=== PATIENT | female | born 2005 | race Hispanic/Latino ===

== ENCOUNTER 2024-05-08 21:36 | Emergency (ER) | payer OTHER ==
[2024-05-08] MEDS ORDERED: KETOROLAC 30 MG/ML INJ ONE (21:52)
[2024-05-08] MEDS ORDERED: METOCLOPRAMIDE 10 MG/2mL INJ ONE (21:52)
[2024-05-08] MEDS ORDERED: NA CHLORIDE 0.9% 1,000 ML ONE (21:52)
[2024-05-08 21:56] LABS: Absolute Eosinophils 0.3 K/uL (0-0.5); Absolute Lymphocytes (CBC) 2.7 K/uL (0.7-4.9); Absolute Monocytes 0.3 K/uL (0.1-1.3); Absolute Neutrophil 3.6 K/uL (1.8-8.0); Basophils % 0.7 % (0-1.3); Eosinophils % 4.8 % (0-4.4); Hematocrit 37.9 % (36.0-45.0); Hemoglobin 12.8 g/dL (12.0-15.0); Lymphocytes % 38.8 % (15.3-44.8); MCH 30.5 pg (27.0-35.0); MCHC 33.7 g/dL (32.0-36.0); MCV 90.5 fL (80-100); MPV 9.5 fL (7.6-11.3); Monocytes % 4.3 % (3.3-12.3); Neutrophils % 51.4 % (41.7-73.7); Nucleated Red Blood Cells % 0.1 % (0-0); Platelets 240 thou/uL (152-406); RBC Red Blood Cell Count 4.19 M/uL (3.86-4.86); Red Cell Distribution Width 13.6 % (12.1-15.2)
[2024-05-08 22:36] LABS: Potassium 3.1 mEq/L (3.5-4.9)
[2024-05-08 22:37] LABS: Albumin 4.1 g/dL (3.4-5.0); Albumin/Globulin Ratio 1.1 (1.1-1.8); Anion Gap 12.1 mEq/L (5.0-15.0); Bilirubin Total 0.6 mg/dL (0.2-1.0); Globulin 3.8 g/dL (2.3-3.5); Protein, Total 7.9 g/dL (6.4-8.2)
--- NOTE | 2024-05-09 01:42 | ER ---
Nurse's Notes [facility] Name: Devi Rodriguez Age: 19 yrs Sex: Female : 2005 Arrival Date: 05/08/2024 Time: 21:36 Bed 6 Private MD: Diagnosis: Choking episode, acute esophageal irritation, Acute esophagitis Presentation: 05/08 21:40 Chief complaint: Patient states: reportedly choked on rice 30 minutes- 1 hour ago. Pt ss reports she feels like something may still be lodged in her esophagus. NAD at this time. Coronavirus screen: Client denies travel out of the [place] in the last 14 days. Ebola Screen: Patient denies exposure to infectious person. Patient denies travel to an Ebola-affected area in the 21 days before illness onset. Initial Sepsis Screen: Does the patient meet any 2 criteria? No. Patient's initial sepsis screen is negative. Does the patient have a suspected source of infection? No. Patient's initial sepsis screen is negative. Risk Assessment: Do you want to hurt yourself or someone else? Patient reports no desire to harm self or others. Onset of symptoms was May 08, 2024. 21:40 Method Of Arrival: EMS: [facility] ss 21:40 Acuity: ROD 3 ss Triage Assessment: 21:42 General: Appears in no apparent distress. Behavior is calm, cooperative. Pain: Denies ss pain. EENT: Oral mucosa is moist. Throat is clear. Neuro: Level of Consciousness is awake, alert, obeys commands, Oriented to person, place, time, situation, Tariff Counsel are equal bilaterally Speech is normal. Respiratory: Airway is patent Respiratory effort is even, unlabored, Respiratory pattern is regular, symmetrical. GI:. Derm: Skin is intact, is healthy with good turgor, Skin is pink, warm \T\ dry. normal. Historical: - Allergies: 21:42 No Known Allergies; ss - Home Meds: 21:42 None [Active]; ss - PMHx: 21:42 Hypertension; ss - PSHx: 21:42 None; ss - Immunization history:: Client reports receiving the 2nd dose of the Covid vaccine. - Infectious Disease History:: Denies. - Social history:: Smoking status: Patient denies any tobacco usage or history of. - Family history:: not pertinent. Screenin:46 [facility] ED Fall Risk Assessment (Adult) History of falling in the last 3 months, bm8 including since admission No falls in past 3 months (0 pts) Confusion or Disorientation No (0 pts) Intoxicated or Sedated No (0 pts) Impaired Gait No (0 pts) Mobility Assist Device Used No (0 pt) Altered Elimination No (0 pt) Score/Fall Risk Level 0 - 2 = Low Risk Oriented to surroundings, Maintained a safe environment, Educated pt \T\ family on fall prevention, incl call for assistance when getting out of bed, Assessed \T\ reinforced patient's understanding of fall precautions, Hourly rounding (assess needs \T\ fall precautionary measures) done, Used ambulatory aids as needed (educated on \T\ assisted with), Used gait belt as appropriate. Abuse screen: Denies threats or abuse. Nutritional screening: No deficits noted. Tuberculosis screening: No symptoms or risk factors identified. Assessment: 21:45 Reassessment: Patient appears in no apparent distress at this time. Patient and/or bm8 family updated on plan of care and expected duration. Pain level reassessed. Patient is alert, oriented x 3, equal unlabored respirations, skin warm/dry/pink. General: Appears in no apparent distress. comfortable, Behavior is calm, cooperative, appropriate for age. 21:46 Pain: Denies pain. Neuro: No deficits noted. Level of Consciousness is awake, alert, bm8 obeys commands, Oriented to person, place, time, situation, Appropriate for age. Cardiovascular: Heart tones S1 S2 present Capillary refill < 3 seconds Patient's skin is warm and dry. Respiratory: Airway is patent Trachea midline Respiratory effort is even, unlabored, Respiratory pattern is regular, symmetrical, Breath sounds are clear bilaterally. GI: No signs and/or symptoms were reported involving the gastrointestinal system. : No signs and/or symptoms were reported regarding the genitourinary system. EENT: Throat is clear bilaterally with gag reflex present. EENT: Reports that she choked on rice about 2000 tonight, feels like something may still be stuck there. Derm: No signs and/or symptoms reported regarding the dermatologic system. Musculoskeletal: No signs and/or symptoms reported regarding the musculoskeletal system. Vital Signs: 21:40 BP 143 / 93; Pulse 105; Resp 16; Temp 98.4(O); Pulse Ox 97% on R/A; Pain 0/10; ss 22:30 BP 130 / 85; Pulse 98; Resp 16; Pulse Ox 100% ; jj7 23:30 BP 105 / 67; Pulse 81; Resp 17; Pulse Ox 100% ; jj7 05/09 00:35 BP 105 / 70; Pulse 78; Resp 19; Pulse Ox 100% ; j7 01:30 BP 108 / 79; Pulse 84; Resp 19; Pulse Ox 99% ; j7 02:06 BP 110 / 81; Pulse 89; Resp 19; Temp 98.3; Pulse Ox 100% ; Pain 0/10; jj7 05/08 21:40 Pain Scale: Adult ss 02:06 Pain Scale: Adult [facility] [place] Coma Score: 05/08 21:46 Eye Response: spontaneous(4). Motor Response: obeys commands(6). Verbal Response: bm8 oriented(5). Total: 15. 05/09 23:12 Eye Response: spontaneous(4). Motor Response: obeys commands(6). Verbal Response: sp4 oriented(5). Total: 15. ED Course: 05/08 21:37 Patient arrived in ED. rv1 21:37 Lawrence Melgar MD is Attending Physician. sp4 21:40 Zoe Booth, ARTIS is Primary Nurse. iw 21:41 Triage completed. ss 21:42 Arm band placed on right wrist. ss 21:46 Patient has correct armband on for positive identification. Bed in low position. Call bm8 light in reach. Side rails up X 1. Client placed on continuous cardiac and pulse oximetry monitoring. NIBP monitoring applied. Pulse ox on. NIBP on. Door closed. Noise minimized. Warm blanket given. Pillow given. Verbal reassurance given. Head of bed elevated. 21:46 No provider procedures requiring assistance completed. Initial lab(s) drawn, by ED bm8 staff, sent to lab. Inserted saline lock: 20 gauge in right antecubital area, using aseptic technique. Blood collected. Flushed with 10 mL NS. Patient maintains SpO2 saturation greater than 95% on room air. 21:49 CBC with Diff Sent. rv1 21:49 CMP Sent. rv1 21:49 Test, Serum Sent. rv1 22:33 CT Chest W/ Con In Process Unspecified. EDMS 22:33 CT Soft Tissue Neck W/contr In Process Unspecified. EDMS 05/09 02:06 IV discontinued, intact, bleeding controlled, No redness/swelling at site. Pressure jj7 dressing applied. Administered Medications: 05/08 22:01 Drug: NS 0.9% IV 1000 ml IV at 1 bolus Per protocol; 1000 mL bolus Route: IV; Rate: 1 bm8 bolus; Site: right antecubital; 22:42 Follow up: Response: No adverse reaction; IV Status: Completed infusion; IV Intake: bm8 1000ml 22:01 Drug: metoCLOPramide IVP 10 mg IVP once; over 1 to 2 minutes Route: IVP; Site: right bm8 antecubital; 22:42 Follow up: Response: No adverse reaction bm8 22:01 Drug: Ketorolac IVP 15 mg IVP once Route: IVP; Site: right antecubital; bm8 22:42 Follow up: Response: No adverse reaction bm8 Medication: 21:46 VIS not applicable for this client. bm8 Intake: 22:42 IV: 1000ml; Total: 1000ml. bm8 Outcome: 05/09 01:42 Discharge ordered by MD. pierre 02:06 Discharged to home ambulatory, with family, edis 02:06 Condition: good 02:06 Discharge instructions given to patient, family, Instructed on discharge instructions, CLEAR LIQ DIET Demonstrated understanding of instructions, CLEAR LIQ DIET 02:09 Patient left the ED. jj7 Signatures: Dispatcher [employer] EDID Zoe Booth RN RN iw Blanchard, Shelby, RN RN ss Johnson, Juwairiyah, RN RN jj7 Villegas, Rebecca rvLawrence Cornelius MD MD sp4 McDonald, Brad RN RN bm8
--- NOTE | 2024-05-09 01:42 | EDPHYS ---
Physician Documentation [facility] Name: Devi Rodriguez Age: 19 yrs Sex: Female : 2005 Arrival Date: 05/08/2024 Time: 21:36 Bed 6 Private MD: ED Physician Lawrence Melgar HPI: 05/08 21:38 This 19 yrs old Female presents to ER via Unassigned with complaints of sp4 sensation of food in the esophagus . 05/09 23:12 Patient presents for complaint of choking on the rice earlier in the day and now sp4 sensation of food bolus stuck in her throat or upper esophagus. . Historical: - Allergies: 05/08 21:42 No Known Allergies; ss - Home Meds: 21:42 None [Active]; ss - PMHx: 21:42 Hypertension; ss - PSHx: 21:42 None; ss - Immunization history:: Client reports receiving the 2nd dose of the Covid vaccine. - Infectious Disease History:: Denies. - Social history:: Smoking status: Patient denies any tobacco usage or history of. - Family history:: not pertinent. ROS: 05/09 23:12 Constitutional: Negative for fever, chills, and weight loss, for foreign body food sp4 bolus sensation in the throat, upper esophagus All other systems are negative, Exam: 23:12 Constitutional: This is a well developed, well nourished patient who is awake, alert, sp4 and in no acute distress. Head/Face: Normocephalic, atraumatic. Eyes: Pupils equal round and reactive to light, extra-ocular motions intact. Lids and lashes normal. Conjunctiva and sclera are not injected. Cornea within normal limits. Periorbital areas with no swelling, redness, or edema. ENT: Nares patent. No nasal discharge, no septal abnormalities noted. Tympanic membranes are normal and external auditory canals are clear. Oropharynx with no redness, swelling, or masses, exudates, or evidence of obstruction, uvula midline. Mucous membranes moist. Neck: Trachea midline, no thyromegaly or masses palpated, and no cervical lymphadenopathy. Supple, full range of motion without nuchal rigidity, or vertebral point tenderness. Chest/axilla: Normal chest wall appearance and motion. Nontender with no deformity. No lesions are appreciated. Cardiovascular: Regular rate and rhythm with a normal S1 and S2. No gallops, murmurs, or rubs. Normal PMI, no JVD. No pulse deficits. Respiratory: Lungs have equal breath sounds bilaterally, clear to auscultation and percussion. No rales, rhonchi or wheezes noted. No increased work of breathing, no retractions or nasal flaring. Abdomen/GI: Soft, with normal bowel sounds. No distension or tympany. No guarding or rebound. No evidence of tenderness throughout. Back: No spinal tenderness. No costovertebral tenderness. Skin: Warm, dry with normal turgor. Normal color with no rashes, no lesions, and no evidence of cellulitis. MS/ Extremity: Pulses equal, no cyanosis. Neurovascular intact. Full, normal range of motion. Neuro: Awake and alert, GCS 15, oriented to person, place, time, and situation. Cranial nerves II-XII grossly intact. Motor strength 5/5 in all extremities. Sensory grossly intact. Psych: Awake, alert, with orientation to person, place and time. Behavior, mood, and affect are within normal limits Vital Signs: 05/08 21:40 BP 143 / 93; Pulse 105; Resp 16; Temp 98.4(O); Pulse Ox 97% on R/A; Pain 0/10; ss 22:30 BP 130 / 85; Pulse 98; Resp 16; Pulse Ox 100% ; 7 23:30 BP 105 / 67; Pulse 81; Resp 17; Pulse Ox 100% ; 7 05/09 00:35 BP 105 / 70; Pulse 78; Resp 19; Pulse Ox 100% ; j7 01:30 BP 108 / 79; Pulse 84; Resp 19; Pulse Ox 99% ; 7 02:06 BP 110 / 81; Pulse 89; Resp 19; Temp 98.3; Pulse Ox 100% ; Pain 0/10; 7 05/08 21:40 Pain Scale: Adult ss 02:06 Pain Scale: Adult j7 [place] Coma Score: 05/08 21:46 Eye Response: spontaneous(4). Motor Response: obeys commands(6). Verbal Response: bm8 oriented(5). Total: 15. 05/09 23:12 Eye Response: spontaneous(4). Motor Response: obeys commands(6). Verbal Response: sp4 oriented(5). Total: 15. MDM: 05/08 21:41 Patient medically screened. sp4 05/09 01:35 ED course: EXAM: CT Chest With Intravenous Contrast CLINICAL HISTORY: The patient is 19 sp4 years old and is Female; food in esophagus TECHNIQUE: Axial computed tomography images of the chest with intravenous contrast. Sagittal and coronal reformatted images were created and reviewed. This CT exam was performed using one or more of the following dose reduction techniques: automated exposure control, adjustment of the mA and/or kV according to patient size, and/or use of iterative reconstruction technique. COMPARISON: No relevant prior studies available. FINDINGS: LUNGS: The lungs are clear of focal opacity, mass, or consolidation. PLEURAL SPACE: Unremarkable. No pneumothorax. No significant effusion. HEART: No cardiomegaly. No pericardial effusion. MEDIASTINUM: The esophagus is incompletely distended. No filling defects or fluid is noted. No evidence to suggest food bolus or impaction. BONES/JOINTS: No acute fracture. SOFT TISSUES: The soft tissues are normal. VASCULATURE: Unremarkable. No thoracic aortic aneurysm. LYMPH NODES: Unremarkable. No enlarged lymph nodes. IMPRESSION: No acute findings on this contrasted CT of the chest to explain the patient's symptoms.. 01:36 ED course: CT neck - IMPRESSION: 1. Normal CT scan of the soft tissues of the neck. 2. sp4 No acute abnormalities are identified. There are no findings on this examination to explain the patient's reported clinical symptoms. 3. Some portions of the oral cavity and oropharynx are obscured by streak artifact related to the patient's dental hardware. . 23:12 Differential Diagnosis altered mental status, sepsis, flu, esophageal food impaction . sp4 Data reviewed: vital signs, nurses notes, EMS record, old medical records, lab test result(s), radiologic studies, CT scan. Consideration of Admission/Observation Escalation of care including admission/observation considered. ED course: Scan revealed no sign of esophageal food bolus retention. Patient stable for discharge home. Advised clear liquid diet for 24 hours. 05/08 21:38 Order name: CBC with Diff; Complete Time: 01:36 sp4 05/08 21:38 Order name: CMP; Complete Time: :36 sp4 05/08 21:39 Order name: Test, Serum; Complete Time: :36 sp4 05/08 21:40 Order name: CT Chest W/ Con sp4 05/08 21:41 Order name: CT Soft Tissue Neck W/contr sp4 05/08 21:38 Order name: IV Saline Lock; Complete Time: 21:45 sp4 05/08 21:38 Order name: Labs collected and sent; Complete Time: 21:45 sp4 Administered Medications: 05/08 22:01 Drug: NS 0.9% IV 1000 ml IV at 1 bolus Per protocol; 1000 mL bolus Route: IV; Rate: 1 bm8 bolus; Site: right antecubital; 22:42 Follow up: Response: No adverse reaction; IV Status: Completed infusion; IV Intake: bm8 1000ml 22:01 Drug: metoCLOPramide IVP 10 mg IVP once; over 1 to 2 minutes Route: IVP; Site: right bm8 antecubital; 22:42 Follow up: Response: No adverse reaction bm8 22:01 Drug: Ketorolac IVP 15 mg IVP once Route: IVP; Site: right antecubital; bm8 22:42 Follow up: Response: No adverse reaction bm8 Disposition Summary: 05/09/24 01:42 Discharge Ordered Notes: clear liquid diet advised for 24 hours Location: Home sp4 Problem: new sp4 Symptoms: have improved sp4 Condition: Stable sp4 Diagnosis - Choking episode, acute esophageal irritation, Acute esophagitis sp4 Followup: sp4 - With: Private Physician - When: 7 - 10 days - Reason: Recheck today's complaints Discharge Instructions: - Discharge Summary Sheet sp4 - Clear Liquid Diet, Adult, [id number] sp4 Forms: - Patient Portal Instructions sp4 Signatures: Dispatcher [employer] Fior Gayle RN RN Lawrence Lloyd MD MD sp4 Jaleel Ocampo RN RN bm8 Corrections: (The following items were deleted from the chart) 21:39 21:39 TEST, [id number] ordered. JADE HANSEN
[2024-05-09 02:21] VITALS: BP 110/81; TEMP 98.3; O2SAT 100
--- NOTE | 2024-05-11 12:42 | RAD REPORT ---
EXAM DESCRIPTION: CT neck with intravenous contrast CLINICAL HISTORY: 19 years Female sensation of food bolus in esophagus. TECHNIQUE: Axial CT imaging of the soft tissues of the neck were performed following the administrat ion of intravenous contrast. followed by sagittal and coronal reconstructed images. The CT study is p erformed according to ALARA (as low as reasonably achievable) or ALARA/IMAGE GENTLY, with automatic a djustment of mA and/or kV according to patient size. Performed on: 05/08/2024 at 10:35 PM COMPARISON: None. FINDINGS: The visualized portions of the brain and orbits are normal. The oral cavity, oropharynx and nasopharynx are normal. Some portions of the oral cavity and orophary nx are obscured by streak artifact related to the patient's dental hardware. The parapharyngeal fa t planes are preserved. The hypopharynx is unremarkable. The epiglottis and aryepiglottic folds are normal. The vallecula and pyriform sinuses are grossly nor mal. The preepiglottic fat is preserved. The thyroid, cricoid and arytenoid cartilages are normal. The region of the false and true vocal cords is normal as is the anterior commissure. The parotid and submandibular glands are grossly within normal limits. No intrinsic mass lesions are seen. . The carotid sheaths are normal bilaterally. The paranasal sinuses and mastoid air cells are clear. No definite pathologically enlarged lymph nodes are identified The thyroid gland is normal in size and configuration. The thoracic inlet is normal. The superior mediastinum and lung apices are normal. No acute osseous abnormalities are identified. No focal soft tissue abnormalities are seen. IMPRESSION: 1. Normal CT scan of the soft tissues of the neck. 2. No acute abnormalities are identified. There are no findings on this examination to explain the patient's reported clinical symptoms. 3. Some portions of the oral cavity and oropharynx are obscured by streak artifact related to the p atient's dental hardware. Electronically signed by: Tiffany Esposito DO 05/08/2024 11:13 PM CDT RP Due to temporary technical issues with the PACS/Fluency reporting system, reports are being signed by the in house radiologist without review as a courtesy to ensure prompt reporting. The interpreting r adiologist is fully responsible for the content of the report.
--- NOTE | 2024-05-11 12:43 | RAD REPORT ---
EXAM DESCRIPTION: CT Chest With Intravenous Contrast CLINICAL HISTORY: The patient is 19 years old and is Female; food in esophagus TECHNIQUE: Axial computed tomography images of the chest with intravenous contrast. Sagittal and c oronal reformatted images were created and reviewed. This CT exam was performed using one or more o f the following dose reduction techniques: automated exposure control, adjustment of the mA and/or kV according to patient size, and/or use of iterative reconstruction technique. COMPARISON: No relevant prior studies available. FINDINGS: LUNGS: The lungs are clear of focal opacity, mass, or consolidation. PLEURAL SPACE: Unremarkable. No pneumothorax. No significant effusion. HEART: No cardiomegaly. No pericardial effusion. MEDIASTINUM: The esophagus is incompletely distended. No filling defects or fluid is noted. No ev idence to suggest food bolus or impaction. BONES/JOINTS: No acute fracture. SOFT TISSUES: The soft tissues are normal. VASCULATURE: Unremarkable. No thoracic aortic aneurysm. LYMPH NODES: Unremarkable. No enlarged lymph nodes. IMPRESSION: No acute findings on this contrasted CT of the chest to explain the patient's symptoms. Electronically signed by: Bety Allen MD 05/08/2024 11:07 PM CDT RP Due to temporary technical issues with the PACS/Fluency reporting system, reports are being signed by the in house radiologist without review as a courtesy to ensure prompt reporting. The interpreting r adiologist is fully responsible for the content of the report.
== END 2024-05-09 02:09 | disposition home or self-care (01) ==
LOC: ER 21:36
DX: T17.928A Food in respiratory tract, part unspecified causing other injury, initial encounter (principal); K20.90 Esophagitis, unspecified without bleeding
CPT/HCPCS: 96361; 85025; 36415; 84703; 82565; 80053; 71260; 70491; 96375; 96374; 99284; Q9967; J2765; J7030

== ENCOUNTER 2024-08-12 17:19 | Emergency (ER) | payer OTHER ==
--- OUTSIDE RECORDS SUMMARY | 2024-08-12 17:22 | XMS REPORT | Continuity of Care Document ---
Author Name Unknown Address [address] [facility] [place] [address] [facility] thconnect Address [address] [place] [address] Care Team Providers Care Medical Office Professional Instructor Name Role Phone Mary Luna Primary Care Physician MULUGETA KEITA Attending Clinician Unavailable EMILY WOODY Attending Clinician Unavailab le LAB90 Attending Clinician Unavailable Payers Payer Name Policy Type Policy Number Effective Date Expirati on Date Source [employer] MP [facility] S[employer]VER: O [place] [address] ON STAND 9 [id number] 2023 00:00:00 Problems Condition Name Condition Details Condition Category Status Onset Date Resolution Date Last Treatment Date Treating Clinician Comments Source Mild major depression Mild major depression Disease Active 04-25 00:00: 00 Luciana Leon Externa l Social History Social Habit Start Date Stop Date Quantity Comments Source Gender identity Linh Castro - External Sexual orientation K festus Castro - External History of tobacco use Cigarette Smoker Luciana fuentes - External Alcohol intake 2023-05-23 00:00:00 2023-05-23 00:00:00 Ex-drinker (finding) Luciana Castro - External Education 2023-04-25 00:00:00 2023-04-25 00:00:00 9 Luciana Castro - External History of Social function 2023-04-24 00:00:00 2023-04-24 00:00:00 Luciana Castro - External Alcohol Comment 2023-04-24 00:00:00 2023-04-24 00:00:00 every few weeks Luciana Sefeliciagina - External Tobacco use and exposure 2023-04-24 00:00:00 2023-04-24 00:00:00 Smokeless tobacco non-user Luciana Castro - External Sex Assigned At 2005 00:00:00 2005 00:00:00 Luciana Spencerfeliciagina - External Smoking Status Start Date Stop Date Source Ex-smoker 2023-04-24 00:00:00 2023-04-24 00:00:00 Luis Alberto mortensen Sefeliciagina - External Medications Ordered Medication Name Filled Medication Name Start Date Stop Date Current Medication? Ordering Clinician Indication Dosage Frequency Signature (SIG) Comments Components Source TAKE 1 CAPSULE BY MOUTH TWICE A DAY 04-26 00:00: 00 Yes Adilson Fraire Nitrofurant oin Monohyd Macro 100 MG oral Capsule 04-26 00:00: 00 05-23 00:00 :00 No [id number] 100mg Take 1 capsule (100 mg total) by mouth 2 times daily Luciana hunter - Externa l Vital Signs Vital Name Observation Time Observation Value Comments S ource Systolic blood pressure 2023-05-23 14:53:00 122 mm[Hg] Luciananadine Eisenbergo ld - External Diastolic blood pressure 2023-05-23 14:53:00 78 mm[Hg] Luciananadine Eisenbergo ld - External Heart rate 2023-05-23 14:53:00 81 /min Berto cain feliciagina - External Body temperature 2023-05-23 14:53:00 36.44 Carie Luciananadine Castro - External Respiratory rate 2023-05-23 14:53:00 14 /min Luciana Gloria - External Body height 2023-05-23 14:53:00 154.9 cm Linh ey ybold - External Body weight 2023-05-23 14:53:[address] ybold - External BMI 2023-05-23 14:53:00 18.29 kg/m2 Linh ey ybold - External Systolic blood pressure 2023-04-25 14:48:00 112 mm[Hg] Luciananadine Eisenbergo ld - External Diastolic blood pressure 2023-04-25 14:48:00 76 mm[Hg] Luciana Eisenbergo ld - External Heart rate 2023-04-25 14:48:00 73 /min Berto Eisenbergold - External Body temperature 2023-04-25 14:48:00 37 Carie Luciana Spencerybold - External Respiratory rate 2023-04-25 14:48:00 20 /min Luciana Spencerybold - External Body height 2023-04-25 14:48:[address] Seybold - External Body weight 2023-04-25 14:48:[address] Seybold - External BMI 2023-04-25 14:48:00 18.71 kg/m2 Linh lane Seybold - External Oxygen saturation in Arterial blood by Pulse oximetry 2023-04-25 14:48:00 99 /min Luciana Eisenbergo ld - External Heart Rate 2024-08-06 09:28:00 90.00 /min Arlette en F Juno Respiratory Rate 2024-08-06 09:28:00 19.00 /min Adilson Jose Fraire BP Systolic 2024-08-06 09:28:00 152 mm[Hg] Step hen F Juno BP Diastolic 2024-08-06 09:28:00 98 mm[Hg] Jc phen F Juno Weight Measured 2024-08-06 09:28:00 104.60 pounds Adilson Fraire Height Measured 2024-08-06 09:28:00 57.17 inches Adilson Fraire Body Temperature 2024-08-06 09:28:00 98.20 degrees Adilson Jose Fraire BP Systolic 2023-12-17 16:17:00 129 mm[Hg] Step hen F Juno BP Diastolic 2023-12-17 16:17:00 87 mm[Hg] Jc phen F Juno Weight Measured 2023-12-17 16:17:00 96.60 pounds Adilson Fraire Height Measured 2023-12-17 16:17:00 57.17 inches Adilson Jose Fraire Body Temperature 2023-12-17 16:17:00 97.90 degrees Adilson Jose Juno Heart Rate 2023-12-17 16:17:00 85.00 /min Arlette en F Juno Respiratory Rate 2023-12-17 16:17:00 18.00 /min Adilson F Juno Encounters Start Date/Time End Date/Time Encounter Type Admission Type Attending [facility] Care Department Encounter ID Source 2024-08-06 09:13:10 2024-08-06 09:13:[address] [facility] [id number] Adilson Fraire 2024-08-06 00:00:00 2024-08-06 00:00:[address] [facility] [id number] Adilson Fraire 2023-12-17 16:16:09 2023-12-17 16:16:[address] [facility] [id number] Adilson Fraire 2023-07-01 13:45:00 2023-07-01 13:45:00 Outpatient MULUGETA KEITA [id number] [facility] 2023-05-23 10:00:00 2023-05-23 10:00:00 Outpatient ANNALISEEMILY [id number] [facility] 2023-05-23 00:00:00 2023-05-23 00:00:00 Outpatient KENNA WOODYTHIA LUCIANA JAIME [id number] [facility] 2023-05-06 00:00:00 2023-05-06 00:00:00 Outpatient EMILY WOODY LUCIANA JAIME [id number] [facility] 2023-04-30 00:00:00 2023-04-30 00:00:00 Outpatient KENNA WOODYTHIA LUCIANA JAIME [id number] [facility] 2023-04-26 00:00:00 2023-04-26 00:00:00 Outpatient KENNA WOODYEMELY JAIME [id number] [facility] 2023-04-25 10:55:00 2023-04-25 10:55:00 Outpatient LAB90 LUCIANA JAIME [id number] [facility] 2023-04-25 10:00:00 2023-04-25 10:00:00 Outpatient KENNA WOODYEMELY JAIME [id number] [facility] Results Test Description Test Time Test Comments Results Result Co mments Source TSH, THIRD [id number] 18:07:59* Test Item Value Reference Range Interpretation Comme nts TSH, THIRD GENERATION (test code = 2821) 1.190 UIU/ML 0.400-4.100 FSH + LH [id number] 18:07:59* Test Item Value Reference Range Interpretation Comme nts FOLLICLE STIM HORMONE (test code = 2700) 8.5 IU/L SEE BELOW EXPEC KYLE VALUES FOR FSH FOR FEMALES >17 YEARS FOLLICULAR 3.5-12.5 IU/L MID-CYCLE PEAK 4.7-21.5 IU/L LUTEAL PHASE 1.7-7.7 IU/L POSTMENOPAUSAL 25.8-134.8 IU/L LUTEINIZING HORMONE (test code = 2776) 7.2 IU/L SEE BELOW EXPEC KYLE VALUES FOR LH FOR FEMALES >17 YEARS MALES FEMALES >=18 YEARS 1.8-8.6 IU/L FOLLICULAR 2.4-12.6 IU/L MID-CYCLE PEAK 14.0-95.6 IU/L LUTEAL PHASE 1.0-11.4 IU/L POSTMENOPAUSAL 7.7-58.5 IU/L [id number] 18:07:59* Test Item Value Reference Range Interpretation Comme [facility] ESTRADIOL (test code = 2505) 22.5 PG/ML SEE BELOW Note: Values in the range of 17-25 PG/ML may demonstrate increased imprecision. Clinical correlation is recommended. EXPECTED VALUES FOR ESTRADIOL FOR FEMALES >=18 YEARS FOLLICULAR . . . . . . . . . . . . . PG/ML 12.4-233.0 OVULATION. . . . . . . . . . . . . . PG/ML 41.0-398.0 LUTEAL PHASE . . . . . . . . . . . . PG/ML 22.3-341.0 POSTMENOPAUSAL SUPPLEMENTED/NON-SUPP . PG/ML <138.0/<20.0 NOTE: TO DETERMINE NORMAL VS. SUBNORMAL ESTRADIOL IN POSTMENOPAUSAL FEMALES, CONSIDER ULTRASENSITIVE ESTRADIOL ([facility] ORDER CODE 5678). METHODOLOGY IS PUSH[employer] KONG ELECTROCHEMILUMINESCENT IMMUNOASSAY WITH A LIMIT OF DETECTION OF 17 PG/ML. [id number] 18:07:59* Test Item Value Reference Range Interpretation Comme nts PROLACTIN (test code = 2800) 12.3 NG/ML 5.0-37.0 NOTE: Methodolog y is [employer] Electrochemiluminescence Immunoassay (ECLIA). Values obtained with different assays/manufacturers cannot be used interchangeably. Results should not be used as sole basis to establish the presence or absence of malignancy. [id number] 18:07:59* Test Item Value Reference Range Interpretation Comme nts PROGESTERONE (test code = 2790) 0.53 NG/ML SEE BELOW EXPECTED VALUES FOR PROGESTERONE MALE . . . . . . . . . . . . . . . . NG/ML <0.20 FEMALE FOLLICULAR PHASE . . . . . . . . . NG/ML <0.90 OVULATION . . . . . . . . . . . . NG/ML <12.00 LUTEAL PHASE . . . . . . . . . . . NG/ML 1.83-23.90 POSTMENOPAUSAL . . . . . . . . . . NG/ML <0.20 1ST TRIMESTER. . . . . . . . . . . NG/ML 11.00-44.30 2ND TRIMESTER. . . . . . . . . . . NG/ML 25.40-83.30 3RD TRIMESTER. . . . . . . . . . . NG/ML 58.70-214.00 UNLESS OTHERWISE INDICATED, ALL TESTING PERFORMED AT [facility] [address] [place] [address] WOOD PREPARATION SUPERVISOR: SHAUNNA SINGLETON M.D. [place] NUMBER [id number] [facility] [place]. [id number] 08:49:39* Test Item Value Reference Range Interpretation Comme nts TESTOSTERONE (test code = 2830) 14 NG/DL <=55 NOTE: TOTAL TESTOSTERONE ASSAY SENSITIVITY IS 12 NG/DL. TO DETERMINE NORMAL VS. SUBNORMAL TESTOSTERONE IN CHILDREN AND WOMEN, CONSIDER TESTING WITH ULTRASENSITIVE TESTOSTERONE. FSH + LH [id number] 00:00:00* Test Item Value Reference Range Interpretation Comme nts FOLLICLE STIM HORMONE (test code = 2700) 8.5 IU/L LUTEINIZING HORMONE (test co de = 2776) 7.2 IU/L Adilson [id number] 00:00:00* Test Item Value Reference Range Interpretation Comme nts ESTRADIOL (test code = 2505) 22.5 PG/ML Adilson [id number] 00:00:00* Test Item Value Reference Range Interpretation Comme nts PROLACTIN (test code = 2800) 12.3 NG/ML Adlison [id number] 00:00:00* Test Item Value Reference Range Interpretation Comme nts PROGESTERONE (test code = 2790) 0.53 NG/ML Adilson FraireTSH, THIRD [id number] 00:00:00* Test Item Value Reference Range Interpretation Comme nts TSH, THIRD GENERATION (test code = 2821) 1.190 UIU/ML Adilson [id number] 00:00:00* Test Item Value Reference Range Interpretation Comme nts TESTOSTERONE (test code = 2830) 14 NG/DL Adilson Fraire Notes Date/Time Note Provider Source Adilson [facility]2023-09-07 09:58:07 Chief Complaint Patient presents with Follow-up Follow up from bacteria in urine. Patient did not finish medication due to side effects from medication. Anxiety Follow up on anxiety/depression. Tiffany Wilson MA II [facility]52[facility]03 Patient here to establish care/physical T [facility]
--- NOTE | 2024-08-12 18:18 | RAD REPORT ---
EXAMINATION: Transvaginal OB COMPARISON: None. HISTORY: Abd pain;Vaginal bleeding TECHNIQUE: Real-time ultrasound was performed through the pelvis. A transvaginal scan was performed t o better visualize the intrauterine contents and adnexa. FINDINGS: There is a single living intrauterine . Cardiac activity measured 129 BPM. There is no visible subchorionic hemorrhage. Both ovaries are visualized and appear unremarkable. There is no free fluid in the cul-de-sac. Measurements and Calculations: Wilburn rump length 11 mm, consistent with a sonographic age of 7 weeks, 1 days. Estimated date of [place] p[place] is 03/30/2025 IMPRESSION: Single living intrauterine , with a composite sonographic age of 7 weeks, 1 days.
[2024-08-12 18:43] LABS: Absolute Basophils 0.1 K/uL (0-0.5); Absolute Eosinophils 0.3 K/uL (0-0.5); Absolute Lymphocytes (CBC) 2.3 K/uL (0.7-4.9); Absolute Monocytes 0.7 K/uL (0.1-1.3); Absolute Neutrophil 5.5 K/uL (1.8-8.0); Basophils % 0.6 % (0-1.3); Eosinophils % 3.8 % (0-4.4); Hemoglobin 13.4 g/dL (12.0-15.0); MCH 30.7 pg (27.0-35.0); MCHC 34.4 g/dL (32.0-36.0); MCV 89.2 fL (80-100); MPV 9.4 fL (7.6-11.3); Monocytes % 7.6 % (3.3-12.3); Nucleated Red Blood Cells % 0.1 % (0-0); Platelets 246 thou/uL (152-406); RBC Red Blood Cell Count 4.37 M/uL (3.86-4.86); Red Cell Distribution Width 13.3 % (12.1-15.2)
[2024-08-12 18:56] LABS: Specific Gravity 1.014 (1.005-1.030); Sqamous Epithelial <5 /HPF (None Seen); Urine Bacteria <20 /HPF (<20); Urine Bilirubin NEGATIVE (Negative); Urine Blood Trace (Negative); Urine Clarity Extremely Turbid (Clear); Urine Color Light-Yellow (Yellow); Urine Crystals Unidentified Few /HPF (None Seen); Urine Culture Reflex Order NOT NEEDED; Urine Glucose NEGATIVE (Negative); Urine Ketones 3+ (Negative); Urine Microscopic Reflex YN ORDER UMIC; Urine Mucus Slight /HPF (None Seen); Urine Nitrite NEGATIVE (Negative); Urine Protein NEGATIVE (Negative); Urine RBC <5 /HPF (None Seen); Urine Urobilinogen Normal (Normal); Urine WBC <5 /HPF (<5); Urine pH 5.5 (5.0-7.0)
[2024-08-12 19:21] LABS: Anion Gap 9.7 mEq/L (5.0-15.0); Potassium 3.7 mEq/L (3.5-5.1)
--- NOTE | 2024-08-12 19:39 | EDPHYS ---
Physician Documentation [facility] Name: Devi Rodriguez Age: 19 yrs Sex: Female : 2005 Arrival Date: 08/12/2024 Time: 17:19 Bed DX2 Private MD: ED Physician Colby Garber HPI: 08/12 22:51 This 19 yrs old Female presents to ER via Ambulatory with complaints of PRG, kb Vaginal Bleeding, Urinary Problem. 22:51 Patient is a 19-year-old female A0 with LMP 06/28/2024. Patient presents for kb vaginal spotting that started approximately 30 minutes prior to arrival and abdominal pain across the entire lower abdomen. Denies urinary symptoms, fever.. Historical: - Allergies: 17:30 No Known Allergies; hb - Home Meds: 17:30 None [Active]; hb - PMHx: 17:30 Hypertension; hb - PSHx: 17:30 None; hb - Immunization history:: Adult Immunizations up to date. - Infectious Disease History:: Denies. - Social history:: Smoking status: Patient denies any tobacco usage or history of. ROS: 22:51 Constitutional: As per HPI kb Exam: 22:51 Constitutional: This is a well developed, well nourished patient who is awake, alert, kb and in no acute distress. Head/Face: Normocephalic, atraumatic. ENT: Moist Mucous membranes Cardiovascular: Regular rate Respiratory: Respirations even and unlabored. No increased work of breathing. Talking in full sentences Abdomen/GI: Soft, non-tender. No distention Skin: Warm, dry with normal turgor. Normal color. MS/ Extremity: Pulses equal, no cyanosis. Neurovascular intact. Full, normal range of motion. Neuro: Awake and alert, GCS 15, oriented to person, place, time, and situation. Vital Signs: 17:28 BP 148 / 92; Pulse 96; Resp 16; Temp 97.5; Pulse Ox 100% on R/A; Weight 48.08 kg; hb Height 5 ft. 0 in. ; Pain 6/10; 17:28 Body Mass Index 20.70 (48.08 kg, 152.4 cm) hb 17:28 Pain Scale: Adult hb MDM: 17:29 Medical Screening Exam initiated kb 22:52 Differential diagnosis: Threatened , spontaneous . Data reviewed: vital kb signs, nurses notes. Historians other than the Patient: Bait Maker line used. Counseling: I had a detailed discussion with the patient and/or guardian regarding the historical points, exam findings, and any diagnostic results supporting the discharge/admit diagnosis, lab results, radiology results, the need for outpatient follow up, an OB/Gyne specialist, to return to the emergency department if symptoms worsen or persist or if there are any questions or concerns that arise at home. 08/12 17:35 Order name: Abo/rh Typing; Complete Time: 19:38 kb 08/12 17:35 Order name: Basic Metabolic Panel; Complete Time: 19:38 kb 08/12 17:35 Order name: CBC with Diff; Complete Time: 18:51 kb 08/12 17:35 Order name: Test, Urine; Complete Time: 18:59 kb 08/12 17:35 Order name: Quantitative Hcg; Complete Time: 19:38 kb 08/12 17:35 Order name: Urinalysis w/ reflexes; Complete Time: 18:59 kb 08/12 17:35 Order name: US Transvaginal Ob; Complete Time: 18:29 kb 08/12 17:35 Order name: IV Saline Lock; Complete Time: 18:40 kb 08/12 17:35 Order name: Labs collected and sent; Complete Time: 18:40 kb 08/12 17:35 Order name: NPO; Complete Time: 18:40 kb Administered Medications: No medications were administered Disposition Summary: 08/12/24 19:38 Discharge Ordered Notes: Location: Home kb Condition: Stable kb Diagnosis - Threatened kb Followup: kb - With: Emergency Department - When: As needed - Reason: Worsening of condition Followup: kb - With: Private Physician - When: 2 - 3 days - Reason: Recheck today's complaints, Continuance of care, Re-evaluation by your physician Discharge Instructions: - Discharge Summary Sheet kb - Threatened Miscarriage, [id number]-[id number] kb - Vaginal Bleeding During , First Trimester, [id number] kb Forms: - Medication Reconciliation Form kb - Antibiotic Education kb - Prescription Opioid Use kb - Patient Portal Instructions kb - Leadership Thank You Letter kb - Work release form ha1 Signatures: Dispatcher [employer] Remedios Chin FNP-Jamar PUBLIC SERVICE OFFICER-Dorothy Palacio RN RN hb Corrections: (The following items were deleted from the chart) 17:35 17:35 ABO/RH TYPING+BB.LAB.BRZ ordered. EDMS EDMS 17:35 17:35 BASIC METABOLIC PANEL+C.LAB.BRZ ordered. EDMS EDMS 17:35 17:35 CBC+H.LAB.BRZ ordered. EDMS EDMS 17:35 17:35 Test, Urine+UC.LAB.BRZ ordered. EDMS EDMS 17:35 17:35 QUANTITATIVE HCG+C.LAB.BRZ ordered. EDMS EDMS 17:35 17:35 Urinalysis+U.LAB.BRZ ordered. EDMS EDMS
--- NOTE | 2024-08-12 19:39 | ER ---
Nurse's Notes [facility] Name: Devi Rodriguez Age: 19 yrs Sex: Female : 2005 Arrival Date: 08/12/2024 Time: 17:19 Bed DX2 Private MD: Diagnosis: Threatened Presentation: 08/12 17:28 Chief complaint: Reddish vaginal discharge and lower abdominal pain that started 30 hb mins ago. Pt reports positive home test, LMP Jun 28. Coronavirus screen: At this time, the client does not indicate any symptoms associated with coronavirus-19. Ebola Screen: No symptoms or risks identified at this time. Initial Sepsis Screen: Does the patient meet any 2 criteria? No. Patient's initial sepsis screen is negative. Does the patient have a suspected source of infection? No. Patient's initial sepsis screen is negative. Risk Assessment: Do you want to hurt yourself or someone else? Patient reports no desire to harm self or others. Onset of symptoms was August 12, 2024. 17:28 Method Of Arrival: Ambulatory hb 17:28 Acuity: ROD 3 hb 17:32 Note April DickeyProcedures Tech #[id number]. hb Historical: - Allergies: 17:30 No Known Allergies; hb - Home Meds: 17:30 None [Active]; hb - PMHx: 17:30 Hypertension; hb - PSHx: 17:30 None; hb - Immunization history:: Adult Immunizations up to date. - Infectious Disease History:: Denies. - Social history:: Smoking status: Patient denies any tobacco usage or history of. Screenin:59 [facility] ED Fall Risk Assessment (Adult) History of falling in the last 3 months, ha1 including since admission No falls in past 3 months (0 pts) Confusion or Disorientation No (0 pts) Intoxicated or Sedated No (0 pts) Impaired Gait No (0 pts) Mobility Assist Device Used No (0 pt) Altered Elimination No (0 pt) Score/Fall Risk Level 0 - 2 = Low Risk Oriented to surroundings, Maintained a safe environment, Educated pt \T\ family on fall prevention, incl call for assistance when getting out of bed, Hourly rounding (assess needs \T\ fall precautionary measures) done. Abuse screen: Denies threats or abuse. Denies injuries from another. Nutritional screening: No deficits noted. Tuberculosis screening: No symptoms or risk factors identified. Assessment: 19:58 General: Appears comfortable, Behavior is calm, cooperative. Pain: Denies pain. Neuro: ha1 Level of Consciousness is awake, alert, obeys commands, Oriented to person, place, time, situation. Cardiovascular: Patient's skin is warm and dry. Respiratory: Airway is patent Respiratory effort is even, unlabored, Respiratory pattern is regular, symmetrical. : Reports vaginal bleeding that is bright red, spotty. Derm: Skin is pink, warm \T\ dry. Vital Signs: 17:28 BP 148 / 92; Pulse 96; Resp 16; Temp 97.5; Pulse Ox 100% on R/A; Weight 48.08 kg; hb Height 5 ft. 0 in. ; Pain 6/10; 17:28 Body Mass Index 20.70 (48.08 kg, 152.4 cm) hb 17:28 Pain Scale: Adult hb ED Course: 17:25 Patient arrived in ED. mg5 17:29 Remedios Sandoval FNP-C [facility] kb 17:29 Colby Garber MD is Attending Physician. kb 17:30 Triage completed. hb 17:31 Arm band placed on. hb 18:17 US Transvaginal Ob In Process Unspecified. EDMS 18:40 Abo/rh Typing Sent. ha1 18:40 Basic Metabolic Panel Sent. ha1 18:40 CBC with Diff Sent. ha1 18:40 Test, Urine Sent. ha1 18:40 Quantitative Hcg Sent. ha1 18:40 Urinalysis w/ reflexes Sent. ha1 18:40 Inserted saline lock: 20 gauge in left antecubital area, using aseptic technique. Blood ha1 collected. Flushed with 10 mL NS. 19:50 Patient has correct armband on for positive identification. ha1 20:00 No provider procedures requiring assistance completed. IV discontinued, intact, ha1 bleeding controlled, No redness/swelling at site. Pressure dressing applied. 20:01 Provided Education on: follow up with OB. ha1 Administered Medications: No medications were administered Medication: 20:01 VIS not applicable for this client. ha1 Outcome: 19:38 Discharge ordered by . kb 20:00 Discharged to home ambulatory, with family, ha1 20:00 Condition: stable 20:00 Discharge instructions given to patient, Instructed on discharge instructions, follow up and referral plans. Demonstrated understanding of instructions, follow-up care, 20:02 Patient left the ED. ha1 Signatures: Dispatcher [employer] EDRemedios Pierce, DARIO YARBROUGH-Dorothy Palacio, RN RN Trisha Caballero RN RN ha1 Vesna Rubalcava mg5 Corrections: (The following items were deleted from the chart) 17:31 17:28 Chief complaint: Reddish vaginal discharge 30 mins ago. Pt reports positive home hb test, LMP Oct 20. hb 17:33 17:28 Chief complaint: Reddish vaginal discharge that started 30 mins ago. Pt reports hb positive home test, LMP Oct 20. hb 17:33 17:28 Chief complaint: Reddish vaginal discharge and lower abdominal pain that started hb 30 mins ago. Pt reports positive home test, LMP Oct 20. hb
[2024-08-12 21:00] VITALS: BP 148/92; TEMP 97.5; O2SAT 100
== END 2024-08-12 20:02 | disposition home or self-care (01) ==
LOC: ER 17:19
DX: O20.0 Threatened abortion (principal)
CPT/HCPCS: 36415; 76817; 80048; 81001; 81025; 84702; 85025; 86900; 86901; 99283

== ENCOUNTER 2024-10-20 17:10 | Emergency (ER) | payer OTHER ==
--- OUTSIDE RECORDS SUMMARY | 2024-10-20 17:16 | XMS REPORT | Continuity of Care Document ---
Author Name Unknown Address [address] [facility] [address] [place] [address] [facility] thconnect Address [address] [facility]. [address] [place] [address] Care Team Providers Care Cnc Manufacturing Engineer Name Role Phone Mary Luna Primary Care Physician IVET ALAN Attending Clinician Unavail able Waqas Ivet LORENZO Attending Clinician + ANA ABEL Attending Clinician Unavailable ANA ABEL Attending Clinician Unavailable ANA ABEL Attending Clinician Unavailable 1, [facility] Attending Clinician UnavailAna Villar MD Attending Clinician [phone] MULUGETA KEITA Attending Clinician Unavailable EMILY WOODY Attending Clinician Unavailab wanda MCKEON Attending Clinician Unavailable Payers Payer Name Policy Type Policy Number Effective Date Expirati on Date Source [employer] M[employer] H[employer] FPL [id number] 2024 00:00:00 FAMILY PLANNING ARASH 0-100% [id number] 2024 00:00:00 [employer] MP [employer] 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 9 [id number] 2023 00:00:00 Problems Condition Name Condition Details Condition Category Status Onset Date Resolution Date Last Treatment Date Treating Clinician Comments Source Supervisio n of high risk in first trimester Supervisio n of high risk in first trimester Disease Active 2023-09 00:00: 00 [facility] Mild major depression Mild major depression Disease Active 8- 00:00: 00 Luciana Castro - Externa l Allergies, Adverse Reactions, Alerts Allergy Name Allergy Type Status Severity Reaction(s) Onset Date Inactive Date Treating Clinician Comments Source NO KNOWN ALLERGIE S Drug Class Active [facility] Social History Social Habit Start Date Stop Date Quantity Comments Source ASSERTION 2024-07-12 00:00:00 [facility] identity Linh Castro - External History of tobacco use Cigarette Smoker Luciana fuentes - External Tobacco use and exposure 2024-08-26 00:00:00 2024-08-26 00:00:00 Smokeless tobacco non-user [facility] Alcoholic beverage intake 2024-08-26 00:00:00 2024-08-26 00:00:00 Ex-drinker (finding) [facility] History of Social function 2024-08-26 00:00:00 2024-08-26 00:00:00 [facility] Alcohol intake 2023-05-23 00:00:00 2023-05-23 00:00:00 Ex-drinker (finding) Luciana Castro - External Education 2023-04-25 00:00:00 2023-04-25 00:00:00 9 Luciana Castro - External Alcohol Comment 2023-04-24 00:00:00 2023-04-24 00:00:00 every few weeks Luciana Castro - External Sex assigned at 2005 00:00:00 2005 00:00:00 [facility] Smoking Status Start Date Stop Date Source Never smoked tobacco [facility] Ex-smoker 2023-04-24 00:00:00 2023-04-24 00:00:00 Luis Alberto Castro - External Medications Ordered Medication Name Filled Medication Name Start Date Stop Date Current Medication? Ordering Clinician Indication Dosage Frequency Signature (SIG) Comments Components Source proMETHazin e 25 mg tablet 2023-09 00:00: 00 Yes [id number] 25mg Take 1 tablet by mouth every 6 (six) hours as needed for Nausea and Vomiting (N/V). [facility] Diclegis 10 mg-10 mg tablet,chandler yed release 2023-09 2-05 00:00: 00 Yes 2mg Adilson Fraire TAKE 1 CAPSULE BY MOUTH TWICE A DAY 04-26 00:00: 00 Yes Adilson Fraire Nitrofurant oin Monohyd Macro 100 MG oral Capsule 04-26 00:00: 00 05-23 00:00 :00 No [id number] 100mg Take 1 capsule (100 mg total) by mouth 2 times daily Luciana Castro - Externa l Immunizations Ordered Immunization Name Filled Immunization Name Date Status Comments Source Flu Injectable MDCK Pres-Free (FLUCELVAX) 2024-08-26 00:00:00 Completed Influenza, Injectable, Mdck, Quadrivalent With Preservative 2023-05-23 00:00:00 Completed Luciana Eisenbergold - External Flu Injectable MDCK Quadrivalent 2023-05-23 00:00:00 Completed HPV 9 (Human Papillomavirus) 2023-04-25 00:00:00 Completed Luciana Castro - External Tdap- (Boostrix, Adacel) 2023-04-25 00:00:00 Completed Luciana Castro - External HPV 9 (Human Papillomavirus) 2023-04-25 00:00:00 Completed Luciana Castro - External Tdap- (Boostrix, Adacel) 2023-04-25 00:00:00 Completed Luciana Castro - External HPV9 2023-04-25 00:00:00 Completed TDAP 2023-04-25 00:00:00 Completed Covid-19 Vaccine (AstraZeneca) 2021-09-16 00:00:00 Completed Luciana Castro - External Covid-19 Vaccine (AstraZeneca) 2021-09-16 00:00:00 Completed Luciana Castro - External SARS-COV-2 COVID-19 ASTRAZENECA VACCINE 2021-09-16 00:00:00 Completed [facility] Vital Signs Vital Name Observation Time Observation Value Comments S alicia Systolic blood pressure 2024-09-23 15:39:00 120 mm[Hg] [facility] Diastolic blood pressure 2024-09-23 15:39:00 74 mm[Hg] [facility] Heart rate 2024-09-23 15:39:00 101 /min Unive [facility] Body temperature 2024-09-23 15:39:00 36.89 Carie [facility] Respiratory rate 2024-09-23 15:39:00 15 /min [facility] Body height 2024-09-23 15:39:[address] [facility] Body weight 2024-09-23 15:39:[address] [facility] BMI 2024-09-23 15:39:00 20.47 kg/m2 [facility] Systolic blood pressure 2024-08-26 19:47:00 110 mm[Hg] [facility] Diastolic blood pressure 2024-08-26 19:47:00 74 mm[Hg] [facility] Heart rate 2024-08-26 19:47:00 91 /min Unive [facility] Body temperature 2024-08-26 19:47:00 35.5 Carie [facility] Respiratory rate 2024-08-26 19:47:00 16 /min [facility] Body height 2024-08-26 19:47:[address] [facility] Body weight 2024-08-26 19:47:[address] [facility] BMI 2024-08-26 19:47:00 19.69 kg/m2 [facility] Systolic blood pressure 2023-05-23 14:53:00 122 mm[Hg] Luciana Spencerybo ld - External Diastolic blood pressure 2023-05-23 14:53:00 78 mm[Hg] Luciana Spencerybo ld - External Heart rate 2023-05-23 14:53:00 81 /min Berto cain Seybold - External Body temperature 2023-05-23 14:53:00 36.44 Carie Luciana Spencerybold - External Respiratory rate 2023-05-23 14:53:00 14 /min Luciana Spencerybold - External Body height 2023-05-23 14:53:[address] Seybold - External Body weight 2023-05-23 14:53:[address] Seybold - External BMI 2023-05-23 14:53:00 18.29 kg/m2 Lin[address] Seybold - External Systolic blood pressure 2023-04-25 14:48:00 112 mm[Hg] Luciana Spencerybo ld - External Diastolic blood pressure 2023-04-25 14:48:00 76 mm[Hg] Luciana Spencerybo ld - External Heart rate 2023-04-25 14:48:00 73 /min Berto y Seybold - External Body temperature 2023-04-25 14:48:00 37 [...] 99 /min Luciana Eisenbergo ld - External BP Systolic 2024-08-20 08:51:00 140 mm[Hg] Step hen F Juno BP Diastolic 2024-08-20 08:51:00 87 mm[Hg] Jc browne F Juno Weight Measured 2024-08-20 08:51:00 101.80 pounds Adilson F Juno Height Measured 2024-08-20 08:51:00 57.17 inches Adilson F Juno Body Temperature 2024-08-20 08:51:00 98.90 degrees Adilson F Juno Heart Rate 2024-08-20 08:51:00 96.00 /min Arlette en F Juno Respiratory Rate 2024-08-20 08:51:00 18.00 /min Adilson F Juno Heart Rate 2024-08-06 09:28:00 90.00 /min Arlette en F Juno Respiratory Rate 2024-08-06 09:28:00 19.00 /min Adilson F Juno BP Systolic 2024-08-06 09:28:00 152 mm[Hg] Step hen F Juno BP Diastolic 2024-08-06 09:28:00 98 mm[Hg] Jc phen Jose Fraire Weight Measured 2024-08-06 09:28:00 104.60 pounds Adilson Fraire Height Measured 2024-08-06 09:28:00 57.17 inches Adilson Fraire Body Temperature 2024-08-06 09:28:00 98.20 degrees Adilson Fraire BP Systolic 2023-12-17 16:17:00 129 mm[Hg] Step hen Jose Fraire BP Diastolic 2023-12-17 16:17:00 87 mm[Hg] Jc phen Jose Fraire Weight Measured 2023-12-17 16:17:00 96.60 pounds Adilson Fraire Height Measured 2023-12-17 16:17:00 57.17 inches Adilson Fraire Body Temperature 2023-12-17 16:17:00 97.90 degrees Adilson Fraire Heart Rate 2023-12-17 16:17:00 85.00 /min Arlette en Jose Fraire Respiratory Rate 2023-12-17 16:17:00 18.00 /min Adilson Fraire Procedures Procedure Date / Time Performed Performing Clinicia n Source POCT URINALYSIS 2024-09-23 16:00:00 Ivet Alan [facility] FIRST TRIMESTER ULTRASOUND 2024-09-03 14:22:00 Ivet Alan [facility] FLU VACC ([id number]), 6 MO-64 YRS, .5ML, IM, TIV (FLUCELVAX) 2024-08-26 19:51:15 Ivet Alan [facility] POCT TEST 2024-08-26 19:37:00 Mao Alan [facility] POCT URINALYSIS W/O SPECIFIC GRAVITY 2024-08-26 19:36:00 Ivet Alan [facility] Encounters Start Date/Time End Date/Time Encounter Type Admission Type Attending [facility] Care Facility Care Department Encounter ID Source 2024-11-13 08:30:00 2024-11-13 08:30:00 Outpatient P [facility] [id number] [facility] 2024-10-21 09:30:00 2024-10-21 09:30:00 Outpatient R IVET ALAN [facility] [id number] [facility] 2024-09-23 09:45:00 2024-09-23 10:10:56 Outpatient R IVET ALAN [facility] [id number] [facility] 2024-09-23 09:45:00 2024-09-23 10:10:56 Routine Visit Ivet Alan [facility] TRIMMING OPERATOR [facility] 1..840.114 350.1.13.10 4.2.7.2.686 [id number] [facility] 2024-09-03 08:00:00 2024-09-03 12:50:00 Outpatient ANA GONZALEZ, ANA ABEL, ANA [facility] [id number] [facility] 2024-09-03 08:00:00 2024-09-03 12:50:00 Freelance Digital Project Manager Visit 1, [facility] Room Ana Abel [facility] TRIMMING OPERATOR [facility] 1..840.114 350.1.13.10 4.2.7.2.686 [id number] [facility] 2024-09-03 00:00:00 2024-09-03 11:55:58 Abstract Ivet Alan [facility] TRIMMING OPERATOR [facility] & CHILD [facility] 1..840.114 350.1.13.10 4.2.7.2.686 [id number] [facility] 2024-09-01 00:00:00 2024-09-01 14:36:43 Abstract Ivet Alan [facility] TRIMMING OPERATOR [facility] & CHILD [facility] 1..840.114 350.1.13.10 4.2.7.2.686 [id number] [facility] 2024-08-26 00:00:00 2024-08-26 15:00:35 Letter (Out) Ivet Alan [facility] TRIMMING OPERATOR [facility] & CHILD [facility] 1.2.840.114 350.1.13.10 4.2.7.2.686 [id number] [facility] 2024-08-26 13:00:00 2024-08-26 14:57:52 Outpatient R HANNAH ALANILOLA [facility] [id number] [facility] 2024-08-26 13:00:00 2024-08-26 14:57:52 Initial Visit Ivet Alan [facility] TRIMMING OPERATOR [facility] & CHILD [facility] 1.2.840.114 350.1.13.10 4.2.7.2.686 [id number] [facility] 2024-08-20 08:45:00 2024-08-20 08:45:00 Outpatient SFA SFA [id number] Adilson Fraire 2024-08-20 00:00:00 2024-08-20 00:00:00 Outpatient Visit SFA [id number] Adilson Fraire 2024-08-06 09:13:10 2024-08-06 09:13:10 Outpatient SFA SFA [id number] Adilson Fraire 2024-08-06 00:00:00 2024-08-06 00:00:00 Outpatient Visit SFA [id number] Adilson Fraire 2023-12-17 16:16:09 2023-12-17 16:16:09 Outpatient SFA SFA [id number] Adilson Fraire 2023-07-01 13:45:00 2023-07-01 13:45:00 Outpatient MULUGETA KEITA [id number] Luciana Castro 2023-05-23 10:00:00 2023-05-23 10:00:00 Outpatient EMILY WOODY [id number] Luciana Casrto 2023-05-23 00:00:00 2023-05-23 00:00:00 Outpatient EMILY WOODY [id number] Luciana Castro 2023-05-06 00:00:00 2023-05-06 00:00:00 Outpatient EMILY WOODY [id number] Luciana Castro 2023-04-30 00:00:00 2023-04-30 00:00:00 Outpatient EMILY WOODY [id number] Luciana Castro 2023-04-26 00:00:00 2023-04-26 00:00:00 Outpatient EMILY WOODY [id number] Luciana Castro 2023-04-25 10:55:00 2023-04-25 10:55:00 Outpatient LAB90 LUCIANA JAIME [id number] Luciana Castro 2023-04-25 10:00:00 2023-04-25 10:00:00 Outpatient EMILY WOODY [id number] [facility] Results Test Description Test Time Test Comments Results Result Co mments Source [facility] Urinalysis w/o Specific [id number] 19:37:00* Test Item Value Reference Range Interpretation Comme nts POCT PH U (test code = 3254) 8 mg/dl 5-8 POCT U LEUK EST (test code = 3263) + Negative - Negative POCT U NIT (test code = 3262) neg Negative - Negati ve POCT U PROT (test code = 3259) trace Negative - Negat lexie POCT U GLU (test code = 3256) neg Negative - Negati ve POCT U KETONE (test code = 3258) neg Negative - Neg ative POCT U BLD (test code = 3257) neg Negative - Negati ve [facility] [id number] 19:37:00* Test Item Value Reference Range Interpretation Comme nts POCT PREG (test code = 1605) Positive On board controls acceptable with C Line (test code = 3574) Yes POCT PREG LOT # (test code = 3575) POCT PREG TEST DATE ( test code = 3576) [facility] [id number] 07:59:00SPECIMEN NUMBER: [id number] CULTURE, URINE SPECIMEN NUMBER: [id number] SOURCE: URINE REPORT STATUS: FINAL FINAL REPORT: 08/22/2024 10,000 - 100,000 CFU/ML UROGENITAL JO-ANN PRESENT NO COMMON PATHOGENSPAP TEST, THINPREP, IMAGED REFLEX HPV HIGH RISK IF [id number] 16:33:32* Test Item Value Reference Range Interpretation Comme nts SOURCE: (test code = 8001) Unspecified SLIDES: (test code = 8011) 1 LMP: (test code = 8021) NOT GIVEN SPECIMEN ADEQUACY: (test code = 01628) (NOTE) Satisfactory for evaluation. INTERPRETATION: (test code = 23569) NILM/NO EPITH. ABNORMALITY;SEE BELOW -- ---- NEGATIVE FOR INTRAEPITHELIAL LESION OR MALIGNANCY (NILM) ------- CYTOTECHNOLOGIS T: (test code = 8101) Anne Mueller LOCATION: (test code = 42320) (NOTE) Specimens proces sed and interpreted at [facility], [address] [place] [address], , CLIA: [id number] CPT: (test code = 8140) 15928 UNLESS OTHERWISE INDICATED, COMPUTER AIDED AND TAPPER HAND SCREENING PERFORMED. The Pap test is a screening test with an inherent, but low probability of error. Your patient should be reminded to consult you immediately if she experiences any suspicious signs or symptoms, regardless of her Pap test result. An alternate report format containing images or consolidated prior Pap history is available as applicable. HPV HIGH RISK IF ASC/LSIL, THINPREP (test code = 20153) CRITERIA NOT MET CT/NG, NAAT, [id number] 16:24:22* Test Item Value Reference Range Interpretation Comme nts CHLAMYDIA, NAAT, THINPREP (test code = 04048) NEGATIVE NEGATIVE A negative resul t does not exclude low level infection, specimensampling error, or collection error. Testing is performed with the [employer] 6800/8800 systems usingreal-time Polymerase Chain Reaction (PCR) method. GONORRHEA, NAAT, THINPREP (test code = 96752) NEGATIVE NEGATIVE A negative resul t does not exclude low level infection, specimensampling error, or collection error. Testing is performed with the [employer] 6800/8800 systems usingreal-time Polymerase Chain Reaction (PCR) method. UNLESS OTHERWISE INDICATED, ALL TESTING PERFORMED AT [facility] [address] [place] [address] SYSTEM CONFIGURATION SPECIALIST: SHAUNNA SINGLETON M.D. [place] NUMBER [id number] [facility] [place]. [id number] HEMOGLOBIN [id number] 14:59:53* Test Item Value Reference Range Interpretation Comme nts HEMOGLOBIN A1 (test code = 2575) 97.4 % 95.0-98.5 HEMOGLOBIN A2 (test code = 2576) 2.6 % 1.6-3.7 HEMOGLOBIN F () (test code = 2722) 0.0 % 0.0-2.0 HEMOGLOBIN S (test code = 2724) NONE % NONE DETECTED HEMOGLOBIN C (test code = 2726) NONE % NONE DETECTED OTHER HEMOGLOBIN VARIANT (test code = 48845) NONE DETEC % NONE DETECTED PATHOLOGIST'S INTERPRETATION (test code = 2577) (NOTE) NO ABNORMAL HEMOGLOBINS IDENTIFIED. SHAUNNA SINGLETON M.D. VAGINAL PATHOGENS DNA [id number] 14:46:54* Test Item Value Reference Range Interpretation Comme nts SHEY SPECIES (test code = 33160) NEGATIVE NEGATIVE G. VAGINALIS (test code = 23749) POSITIVE NEGATIVE A T. VAGINALIS (test code = 31608) NEGATIVE NEGATIVE Note: [facility] VPIII Microbial Identification Testis a DNA probe test intended for use in the detectionand identification of Shey species, Gardnerellavaginalis and Trichomonas vaginalis nucleic acid. VARICELLA ZOSTER [id number] 12:21:19* Test Item Value Reference Range Interpretation Comme nts VARICELLA ZOSTER IgG (test code = 93272) 5.08 S/CO SEE BELOW PLEASE NOTE: NEW REFERENCE RANGE AND UNITS OF MEASURE. INTERPRETATION UNITS RANGE ----- ----- NEGATIVE S/CO <1.00 POSITIVE S/CO >=1.00 DRUG ABUSE SCREEN 10 REFLEX [id number] 05:55:00* Test Item Value Reference Range Interpretation Comme nts AMPHETAMINES (test code = 3201) NEGATIVE NEGATIVE BARBITURATES (test code = 3202) NEGATIVE NEGATIVE BENZODIAZEPINES (test code = 3203) NEGATIVE NEGATIVE CANNABINOIDS (THC) (test code = 3204) NEGATIVE NEGATIVE COCAINE METABOLITES (test code = 3205) NEGATIVE NEGATIVE OPIATE METABOLITES (test code = 3209) NEGATIVE NEGATIVE OXYCODONE (test code = 98619) NEGATIVE NEGATIVE PHENCYCLIDINE (PCP) (test code = 3210) NEGATIVE NEGATIVE METHADONE (test code = 3207) NEGATIVE NEGATIVE BUPRENORPHINE (test code = 94371) NEGATIVE NEGATIVE SOURCE (test code = 136642) URINE PLEASE NOTE: NEW METHODOLOGY AND SCREENING CUT OFFS SEE BELOW FOR THRESHOLDS AND IMPORTANT METHOD NOTES ANALYTE SCREENING CUTOFF UNITS AMPHETAMINES 500 NG/ML BARBITURATES 200 NG/ML BENZODIAZEPINES 200 NG/ML CANNABINOIDS (THC) 20 NG/ML COCAINE METABOLITES 150 NG/ML OPIATE METABOLITES 300 NG/ML OXYCODONE 100 NG/ML PHENCYCLIDINE (PCP) 25 NG/ML METHADONE 300 NG/ML BUPRENORPHINE 5 NG/ML NOTE: Specimens reported as PRESUMPTIVE POSITIVE have not beensubjected to confirmation testing. NOTE: Screening methodology is KIMS/HEIA. NOTE: Screening methodology is qualitative Enzyme Immunoassay.The screening method may be less sensitive for certain medicationsincluding clonazepam and lorazepam in the benzodiazepine assay andtramadol in the opiate assay, amongst others. Patient compliance,hydration status, timing and dose of medications, drug absorption andspecimen quality may affect screening assay. False positive screenresults may occur due to cross-reactivity. For clinicaldiscrepancies, consider directed testing for specific compounds orcontact the laboratory within specimen stability to forward forconfirmatory testing. This test is specified for medical purposesonly. It is not valid for forensic use. UNLESS OTHERWISE INDICATED, ALL TESTING PERFORMED AT [facility] [address] [place] [address] SYSTEM CONFIGURATION SPECIALIST: SHAUNNA SINGLETON M.D. [place] NUMBER [id number] [facility] [place]. [id number] 04:51:28* Test Item Value Reference Range Interpretation Comme nts RPR RESULT (test code = 3501) NON-REACTIVE NON-REACTIVE RPR TITER (test code = 3500) NOT INDIC. TITER NOT INDIC. OBSTETRIC PANEL + [id number] 04:16:36* Test Item Value Reference Range Interpretation Comme nts WBC (test code = 1001) 7.9 K/UL 3.5-11.0 RBC (test code = 1002) 4.23 M/UL 3.80-5.40 HEMOGLOBIN (test code = 1003) 12.4 G/DL 11.5-15.5 HEMATOCRIT (test code = 1004) 38.8 % 34.0-45.0 MCV (test code = 1005) 91.7 fL 80.0-99.0 MCH (test code = 1006) 29.3 PG 25.0-33.0 MCHC (test code = 1007) 32.0 G/DL 31.0-36.0 RDW (test code = 1038) 12.5 % 11.5-15.0 NEUTROPHILS (test code = 1008) 62.3 % LYMPHOCYTES (test code = 1010) 26.2 % MONOCYTES (test code = 1011) 6.5 % EOSINOPHILS (test code = 1012) 4.1 % BASOPHILS (test code = 1013) 0.6 % IMMATURE GRANULOCYTES (test code = 1036) 0.3 % NUCLEATED RBCS (test code = 1065) 0.0 /100 WBC'S See_Comment [Automated me ssage] The system which generated this result transmitted reference range: 0.0. The reference range was not used to interpret this result as normal/abnormal. PLATELET COUNT (test code = 1015) 254 K/UL 130-400 ABSOLUTE NEUTROPHILS (test code = 1066) 4.93 K/UL 1.50-7.50 ABSOLUTE LYMPHOCYTES (test code = 1067) 2.07 K/UL 1.00-4.00 ABSOLUTE MONOCYTES (test code = 1068) 0.51 K/UL 0.20-1.00 ABSOLUTE EOSINOPHILS (test code = 1040) 0.32 K/UL 0.00-0.50 ABSOLUTE BASOPHILS (test code = 1069) 0.05 K/UL 0.00-0.20 ABS IMMATURE GRANULOCYTES (test code = 1020) 0.02 K/UL 0.00-0.10 ABS NUCLEATED RBCS (test code = 59757) 0.00 K/UL 0.00-0.11 BLOOD TYPE AND RH (test code = 3901) B POSITIVE A HISTORICAL RECORD CHECK FOR PREVIOUS RESULTS IS NOT PERFORMED.THESE RESULTS SHOULD BE CORRELATED WITH RESULTS OF PRIOR BLOODTYPING AND ANTIBODY SCREEN STUDIES. ANTIBODY SCREEN (test code = 3902) NEGATIVE NEGATIVE A HISTORICAL RECORD CHECK FOR PREVIOUS RESULTS IS NOT PERFORMED.THESE RESULTS SHOULD BE CORRELATED WITH RESULTS OF PRIOR BLOODTYPING AND ANTIBODY SCREEN STUDIES. RUBELLA ANTIBODY SCREEN (test code = 4600) 151 IU/ML SEE BELOW RUBELLA IgG INTERP (test code = 55990) REACTIVE REACTIVE INTERPRETATI ON UNITS RANGE ----- ----- NON-REACTIVE/NON-IMM UNE IU/ML <10 REACTIVE/IMMUNE IU/ML >=10 HEPATITIS B SURF AG (test code = 2739) NON-REACTIVE NON-REACTIVE RPR (test code = 74465) NON-REACTIVE NON-REACTIVE RPR TITER (test code = 3500) NOT INDIC. TITER NOT INDIC. HIV 1/2 4TH GEN, RFLX CONF (test code = 3514) NON-REACTIVE NON-REACTIVE HEPATITIS C REFLEX [id number] 04:16:36* Test Item Value Reference Range Interpretation Comme nts HEPATITIS C ANTIBODY (test c ode = 4675) NON-REACTIVE NON-REACTIVE HCG, [id number] 06:40:19* Test Item Value Reference Range Interpretation Comme nts HCG, QUANTITATIVE (test code = 2506) 72917 MIU/ML SEE BELOW EXPEC KYLE VALUES FOR HCG GST.AGE UNITS RANGE GST. AGE UNITS RANGE3 WEEKS MIU/ML 6-71 10 WEEKS MIU/ML 46,509-186,9774 WEEKS MIU/ML 10-750 12 WEEKS MIU/ML 27,832-210,6125 WEEKS MIU/ML 217-7,138 14 WEEKS MIU/ML 13,950-62,5306 WEEKS MIU/ML 158-31,795 15 WEEKS MIU/ML 12,039-70,9717 WEEKS MIU/ML 3,697-163,563 16 WEEKS MIU/ML 9,040-56,4518 WEEKS MIU/ML 32,065-149,571 17 WEEKS MIU/ML 8,175-55,8689 WEEKS MIU/ML 63,803-151,410 18 WEEKS MIU/ML 8,099-58,176MALES and NON- FEMALES . . . . . . . . MIU/ML 2-9IHVP-JCXLOHRYNY FEMALES . . . . . . . . . . . . MIU/ML <=7 UNLESS OTHERWISE INDICATED, ALL TESTING PERFORMED AT [facility] [address] [place] [address] SYSTEM CONFIGURATION SPECIALIST: SHAUNNA SINGLETON M.D. CLIA NUMBER [id number] [facility] [place]. [id number] HCG, [id number] 00:00:00* Test Item Value Reference Range Interpretation Comme [facility] HCG, QUANTITATIVE (test code = 2506) [address]158 MIU/ML Adilson Tripp, THIRD [id number] 18:07:59* Test Item Value Reference Range Interpretation Comme [facility] TSH, THIRD GENERATION (test code = 2821) 1.190 UIU/ML 0.400-4.100 FSH + LH [id number] 18:07:59* Test Item Value Reference Range Interpretation Comme [facility] FOLLICLE STIM HORMONE (test code = 2700) [...] LUTEAL PHASE 1.0-11.4 IU/L POSTMENOPAUSAL 7.7-58.5 IU/L [id number] 18:07:59* Test Item Value Reference Range Interpretation Comme [facility] ESTRADIOL (test code = 2505) 22.5 [...] ESTRADIOL IN POSTMENOPAUSAL FEMALES, CONSIDER ULTRASENSITIVE ESTRADIOL ([facility] ORDER CODE 5678). METHODOLOGY IS PUSH[facility] KONG ELECTROCHEMILUMINESCENT IMMUNOASSAY WITH A LIMIT OF DETECTION OF 17 PG/ML. [id number] 18:07:59* Test Item Value Reference Range Interpretation [facility] (test code = 2800) 12.3 NG/ML 5.0-37.0 NOTE: Methodolog y is Pushpa Kong Electrochemiluminescence Immunoassay (ECLIA). Values obtained with different assays/manufacturers cannot be used interchangeably. Results should not be used as sole basis to establish the presence or absence of malignancy. [id number] 18:07:59* Test Item Value Reference Range Interpretation Comme [facility] PROGESTERONE (test code = 2790) 0.53 NG/ML [...] TESTING PERFORMED AT [facility] [address] [place] [id number] SYSTEM CONFIGURATION SPECIALIST: SHAUNNA SINGLETON M.D. [place] NUMBER [id number] [facility] [place]. [id number] 08:49:39* Test Item Value Reference Range Interpretation Comme [facility] TESTOSTERONE (test code = 2830) 14 NG/DL <=55 NOTE: TOTAL TESTOSTERONE ASSAY SENSITIVITY IS 12 NG/DL. TO DETERMINE NORMAL VS. SUBNORMAL TESTOSTERONE IN CHILDREN AND WOMEN, CONSIDER TESTING WITH ULTRASENSITIVE TESTOSTERONE. TSH, THIRD [id number] 00:00:00* Test Item Value Reference Range Interpretation Comme [facility] TSH, THIRD GENERATION (test code = 2821) 1.190 UIU/ML Adilson [id number] 00:00:00* Test Item Value Reference Range Interpretation Comme [facility] TESTOSTERONE (test code = 2830) 14 NG/DL Adilson FraireFSH + LH [id number] 00:00:00* Test Item Value Reference Range Interpretation Comme [facility] FOLLICLE STIM HORMONE (test code = 2700) 8.5 IU/L LUTEINIZING HORMONE (test co de = 2776) 7.2 IU/L Adilson [id number] 00:00:00* Test Item Value Reference Range Interpretation Comme nts ESTRADIOL (test code = 2505) 22.5 PG/ML Adilson [id number] 00:00:00* Test Item Value Reference Range Interpretation Comme [facility] PROLACTIN (test code = 2800) 12.3 NG/ML Adilson F [id number] 00:00:00* Test Item Value Reference Range Interpretation Comme nts PROGESTERONE (test code = 2790) 0.53 NG/ML Adilson TrippH, THIRD [id number] 00:00:00* Test Item Value Reference Range Interpretation Comme nts TSH, THIRD GENERATION (test code = 2821) 1.190 UIU/ML Adilson [id number] 00:00:00* Test Item Value Reference Range Interpretation Comme nts TESTOSTERONE (test code = 2830) 14 NG/DL Adilson FraireFSSol + LH [id number] 00:00:00* Test Item Value Reference Range Interpretation Comme nts FOLLICLE STIM HORMONE (test code = 2700) 8.5 IU/L LUTEINIZING HORMONE (test co de = 2776) 7.2 IU/L Adilson [id number] 00:00:00* Test Item Value Reference Range Interpretation Comme nts ESTRADIOL (test code = 2325) 22.5 PG/ML Adilson [id number] 00:00:00* Test Item Value Reference Range Interpretation Comme nts PROLACTIN (test code = 2800) 12.3 NG/ML Adilson [id number] 00:00:00* Test Item Value Reference Range Interpretation Comme nts PROGESTERONE (test code = 2790) 0.53 NG/ML Adilson Fraire
--- NOTE | 2024-10-20 18:13 | RAD REPORT ---
EXAM: OB Limited HISTORY: Abd cramping, ;Vaginal bleeding COMPARISON: 08/12/2024 TECHNIQUE: Multiple grayscale and color Doppler images were obtained in a transabdominal pelvic ultra sound. Spectral analysis of the Doppler waveforms of the ovaries were performed. FINDINGS: UTERUS: Breech presenting gestation. heart rate: 151 BPM Cervix: Closed, 4.2 cm Placenta: Anterior. No previa. Femur length: 2.1 cm, 16 week 1 day No free fluid is seen in the pelvis. RIGHT OVARY: Nonvisualized LEFT OVARY: Nonvisualized IMPRESSION: Single breech presenting gestation measuring 16 week 1 day. Anterior placenta. Closed cervix.
[2024-10-20 18:19] LABS: Absolute Eosinophils 0.4 K/uL (0-0.5); Absolute Monocytes 0.6 K/uL (0.1-1.3); Basophils % 0.4 % (0-1.3); Eosinophils % 4.7 % (0-4.4); Hematocrit 35.1 % (36.0-45.0); Hemoglobin 12.2 g/dL (12.0-15.0); MCH 31.1 pg (27.0-35.0); MCHC 34.9 g/dL (32.0-36.0); MCV 89.2 fL (80-100); MPV 9.3 fL (7.6-11.3); Monocytes % 7.1 % (3.3-12.3); Neutrophils % 65.8 % (41.7-73.7); Nucleated Red Blood Cells % 0.1 % (0-0); Platelets 224 thou/uL (152-406); RBC Red Blood Cell Count 3.93 M/uL (3.86-4.86); Red Cell Distribution Width 13.7 % (12.1-15.2)
[2024-10-20 18:37] LABS: Specific Gravity 1.013 (1.005-1.030)
[2024-10-20 18:38] LABS: Specific Gravity 1.013 (1.005-1.030); Sqamous Epithelial <5 /HPF (None Seen); Urine Bacteria <20 /HPF (<20); Urine Bilirubin NEGATIVE (Negative); Urine Blood Negative (Negative); Urine Clarity Turbid (Clear); Urine Color Colorless (Yellow); Urine Culture Reflex Order NOT NEEDED; Urine Glucose NEGATIVE (Negative); Urine Ketones NEGATIVE (Negative); Urine Microscopic Reflex YN ORDER UMIC; Urine Mucus Slight /HPF (None Seen); Urine Nitrite NEGATIVE (Negative); Urine Protein NEGATIVE (Negative); Urine RBC <5 /HPF (None Seen); Urine Urobilinogen Normal (Normal); Urine WBC <5 /HPF (<5); Urine pH 5.5 (5.0-7.0)
[2024-10-20 18:59] LABS: Anion Gap 8.5 mEq/L (5.0-15.0); Potassium 3.5 mEq/L (3.5-5.1)
--- NOTE | 2024-10-20 19:01 | EDPHYS ---
Physician Documentation [facility] Name: Devi Rodriguez Age: 19 yrs Sex: Female : 2005 Arrival Date: 10/20/2024 Time: 17:10 Bed 6 Private MD: ED Physician Avi Sanders HPI: 10/20 18:39 This 19 yrs old Female presents to ER via Ambulatory with complaints of 16 kb weeks abdom pain. 18:39 PT is a 19 year old female who presents for spotting and lower abd pain that started kb this morning. Reports she is 16 weeks . States this has been normal so far. . 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 - Infectious Disease History:: Denies. - Social history:: Smoking status: Patient denies any tobacco usage or history of. ROS: 18:39 Constitutional: As per HPI kb Exam: 18:39 Constitutional: This is a well developed, well nourished patient who is awake, alert, kb and in no acute distress. Head/Face: Normocephalic, atraumatic. ENT: Moist Mucous membranes Cardiovascular: Regular rate Respiratory: Respirations even and unlabored. No increased work of breathing. Talking in full sentences Abdomen/GI: Soft, non-tender. No distention Skin: Warm, dry with normal turgor. Normal color. MS/ Extremity: Pulses equal, no cyanosis. Neurovascular intact. Full, normal range of motion. Neuro: Awake and alert, GCS 15, oriented to person, place, time, and situation. Vital Signs: 17:25 BP 116 / 78; Pulse 99; Resp 16; Temp 97.7; Pulse Ox 100% ; ko1 19:18 jb4 19:18 pt declined lat vital signs jb4 Jasper Coma Score: 19:18 Eye Response: spontaneous(4). Motor Response: obeys commands(6). Verbal Response: jb4 oriented(5). Total: 15. MDM: 17:19 Medical Screening Exam initiated kb 18:40 Differential diagnosis: threatened , spontaneous . Data reviewed: vital kb signs, nurses notes. Counseling: I had a detailed discussion with the patient and/or guardian regarding the historical points, exam findings, and any diagnostic results supporting the discharge/admit diagnosis, lab results, radiology results, the need for outpatient follow up, an OB/Gyne specialist, to return to the emergency department if symptoms worsen or persist or if there are any questions or concerns that arise at home. 10/20 17:32 Order name: Abo/rh Typing; Complete Time: 18:34 kb 10/20 17:32 Order name: Basic Metabolic Panel; Complete Time: 19:00 kb 10/20 17:32 Order name: CBC with Diff; Complete Time: 18:38 kb 10/20 17:32 Order name: Test, Urine; Complete Time: 18:38 kb 10/20 17:32 Order name: Quantitative Hcg; Complete Time: 19:00 kb 10/20 17:32 Order name: Urinalysis w/ reflexes; Complete Time: 18:38 kb 10/20 17:32 Order name: US OB Limited; Complete Time: 18:19 kb 10/20 17:32 Order name: IV Saline Lock; Complete Time: 18:08 kb 10/20 17:32 Order name: Labs collected and sent; Complete Time: 18:08 kb 10/20 17:32 Order name: NPO; Complete Time: 18:08 kb Administered Medications: No medications were administered Disposition: 20:16 I was immediately available on-site in the Emergency Department for consultation in the ms3 care of the patient. Disposition Summary: 10/20/24 19:00 Discharge Ordered Notes: Location: Home kb Condition: Stable kb Diagnosis - Threatened kb Followup: kb - With: Emergency Department - When: As needed - Reason: Worsening of condition Followup: kb - With: Private Physician - When: 2 - 3 days - Reason: Recheck today's complaints, Continuance of care, Re-evaluation by your physician Discharge Instructions: - Discharge Summary Sheet kb - Vaginal Bleeding During , Second Trimester kb - Threatened Miscarriage, Hutb-qy-[place] kb Forms: - Work release form kb - Medication Reconciliation Form kb - Antibiotic Education kb - Prescription Opioid Use kb - Patient Portal Instructions kb - Leadership Thank You Letter kb Signatures: Dispatcher [employer] EDRemedios Pierce FNP-C FNP-Ckb Sims, Marcus, DO DO ms3 Ashley Pena RN RN ko1 Corrections: (The following items were deleted from the chart) 17:32 17:32 ABO/RH TYPING+BB.LAB.BRZ ordered. EDMS EDMS 17:32 17:32 BASIC METABOLIC PANEL+C.LAB.BRZ ordered. EDMS EDMS 17: 17:32 CBC+H.LAB.BRZ ordered. EDMS EDMS 17: 17:32 Test, Urine+UC.LAB.BRZ ordered. EDMS EDMS 17: 17:32 QUANTITATIVE HCG+C.LAB.BRZ ordered. EDMS EDMS 17: 17:32 Urinalysis+U.LAB.BRZ ordered. EDMS EDMS
--- NOTE | 2024-10-20 19:01 | ER ---
Nurse's Notes [facility] Name: Devi Rodriguez Age: 19 yrs Sex: Female : 2005 Arrival Date: 10/20/2024 Time: 17:10 Bed 6 Private MD: Diagnosis: Threatened Presentation: 10/20 17:25 Chief complaint: Patient states: and pain in lower abdomen and bleeding ko1 started today. Coronavirus screen: At this time, the client does not indicate any symptoms associated with coronavirus-19. Ebola Screen: No symptoms or risks identified at this time. Initial Sepsis Screen: Does the patient meet any 2 criteria? No. Patient's initial sepsis screen is negative. Does the patient have a suspected source of infection? No. Patient's initial sepsis screen is negative. Risk Assessment: Do you want to hurt yourself or someone else? Patient reports no desire to harm self or others. Onset of symptoms was October 20, 2024. 17:25 Method Of Arrival: Ambulatory ko1 17:25 Acuity: ROD 3 ko1 Triage Assessment: 17:29 General: Appears in no apparent distress. Behavior is calm, cooperative, appropriate ko1 for age. Pain: Complains of pain in abdomen. 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 - Infectious Disease History:: Denies. - Social history:: Smoking status: Patient denies any tobacco usage or history of. Screenin:18 [facility] ED Fall Risk Assessment (Adult) History of falling in the last 3 months, jb4 including since admission No falls in past 3 months (0 pts) Confusion or Disorientation No (0 pts) Intoxicated or Sedated No (0 pts) Impaired Gait No (0 pts) Mobility Assist Device Used No (0 pt) Altered Elimination No (0 pt) Score/Fall Risk Level 0 - 2 = Low Risk Oriented to surroundings, Maintained a safe environment, Educated pt \T\ family on fall prevention, incl call for assistance when getting out of bed, Assessed \T\ reinforced patient's understanding of fall precautions, Hourly rounding (assess needs \T\ fall precautionary measures) done, Used ambulatory aids as needed (educated on \T\ assisted with), Used gait belt as appropriate. Abuse screen: Denies threats or abuse. Nutritional screening: No deficits noted. Tuberculosis screening: No symptoms or risk factors identified. Assessment: 19:18 Reassessment: Patient appears in no apparent distress at this time. Patient and/or jb4 family updated on plan of care and expected duration. Pain level reassessed. Patient is alert, oriented x 3, equal unlabored respirations, skin warm/dry/pink. Patient denies pain at this time. Patient states feeling better. Patient states symptoms have improved. Vital Signs: 17:25 BP 116 / 78; Pulse 99; Resp 16; Temp 97.7; Pulse Ox 100% ; ko1 19:18 jb4 19:18 pt declined lat vital signs jb4 Jasper Coma Score: 19:18 Eye Response: spontaneous(4). Motor Response: obeys commands(6). Verbal Response: jb4 oriented(5). Total: 15. ED Course: 17:17 Patient arrived in ED. al6 17:19 Remedios Sandoval FNP-C is [facility]. kb 17:19 Avi Sanders DO is Attending Physician. kb 17:28 Triage completed. ko1 17:29 Arm band placed on right wrist. Patient placed in waiting room, Patient notified of ko1 wait time. 17:58 US OB Limited In Process Unspecified. EDMS 18:00 Osiel Roper, RN is Primary Nurse. bp 18:10 Abo/rh Typing Sent. bc6 18:10 Basic Metabolic Panel Sent. bc6 18:10 CBC with Diff Sent. bc6 18:10 Test, Urine Sent. bc6 18:10 Quantitative Hcg Sent. bc6 18:10 Urinalysis w/ reflexes Sent. bc6 18:10 Initial lab(s) drawn, by tx, sent to lab. Inserted saline lock: 20 gauge in right bc6 antecubital area, using aseptic technique. Blood collected. Flushed with 10 mL NS. 19:18 Patient has correct armband on for positive identification. Bed in low position. Call jb4 light in reach. Side rails up X 1. Door closed. Noise minimized. Warm blanket given. Pillow given. Head of bed elevated. 19:18 No provider procedures requiring assistance completed. Patient did not have IV access jb4 during this emergency room visit. 19:19 Provided Education on: post er care follow up with OBGYN. jb4 Administered Medications: No medications were administered Medication: 19:18 VIS not applicable for this client. jb4 Outcome: 19:00 Discharge ordered by . kelli 19:18 Discharged to home ambulatory, jb4 19:18 Condition: stable 19:18 Discharge instructions given to patient, family, Instructed on discharge instructions, follow up and referral plans. Demonstrated understanding of instructions, follow-up care, 19:20 Patient left the ED. jb4 Signatures: Dispatcher [employer] EDOR Remedios Sandoval, DARIO BEEP-Kieran Francois RN RN jb4 Osiel Roper RN RN Ashley Cervantes RN RN ko1 Melinda Marshall6 Melinda Pedro6 Corrections: (The following items were deleted from the chart) 17:30 17:25 Chief complaint: Patient states: and pain in lower abdomen ko1 ko1
[2024-10-20 20:04] VITALS: BP 116/78; TEMP 97.7; O2SAT 100
== END 2024-10-20 19:20 | disposition home or self-care (01) ==
LOC: ER 17:10
DX: O20.0 Threatened abortion (principal); Z3A.16 16 weeks gestation of pregnancy
CPT/HCPCS: 36415; 76815; 80048; 81001; 81025; 84702; 85025; 86900; 86901